=== PATIENT | male | born 1985 | race Caucasian/White ===

== ENCOUNTER 2020-05-26 19:47 | Emergency (ER) | payer BC ==
[~2020-05-26] VITALS: Ht 172.7 cm; Wt 93.8 kg
[2020-05-26 21:19] LABS: BASOPHILS % (AUTO) 1 % (0-1); EOSINOPHILS % (AUTO) 1 % (1-7); LYMPHOCYTES % (AUTO) 29 % (22-44); MEAN CORPUSCULAR HEMOGLOBIN 30.3 pg (27.5-34.5); MEAN CORPUSCULAR HGB CONC 33.9 g/dL (33.2-36.2); MEAN PLATELET VOLUME 7.6 fL (7.4-10.4); MONOCYTES % (AUTO) 8 % (2-9); NEUTROPHILS % (AUTO) 61 % (42-75); PLATELET COUNT 364 x10^3/uL (130-400); RED CELL DISTRIBUTION WIDTH 13.5 % (9.4-14.8)
[2020-05-26 21:21] LABS: ALBUMIN 4.1 g/dL (3.4-5.0); ANION GAP 6 mmol/L (5-15); CALCIUM 9.1 mg/dL (8.5-10.1); CHLORIDE 110 mmol/L (98-107)
[2020-05-26] MEDS ORDERED: ONDANSETRON 2MG/ML, 2ML ONE (21:26)
[2020-05-26] MEDS ORDERED: MORPHINE SULFATE 4 MG/ML, 1ML ONE ×2 (21:27→22:28)
[2020-05-26 21:28] LABS: ALANINE AMINOTRANSFERASE 33 U/L (12-78); ALKALINE PHOSPHATASE 90 U/L (45-117); BILIRUBIN,TOTAL 0.4 mg/dL (0.2-1.0); CREATININE 0.99 mg/dL (0.7-1.3); TOTAL PROTEIN 7.4 g/dL (6.4-8.2); TROPONIN I < 0.015 ng/mL (0.000-0.045)
[2020-05-26] MEDS ORDERED: ONDANSETRON 2MG/ML, 2ML IVPush ONE (21:30)
[2020-05-26 21:34] LABS: MD NO
[2020-05-26] MEDS: MORPHINE SULFATE 4 MG/ML, 1ML IVPush PRN ×2 (21:36→22:35)
[2020-05-26] MEDS ORDERED: OMNIPAQUE 350 MG/ML, 100ML BOTTLE ONE (22:00)
[2020-05-26] MEDS ORDERED: SODIUM CHLORIDE FLUSH 10ML SYR IVF ONE (22:00)
--- NOTE | 2020-05-26 22:35 | NUR ---
Pt reports pain level has decreased to 7. Minimal improvement. Administered 2nd dose of morphine.
--- NOTE | 2020-05-26 23:25 | NUR ---
Pt reports pain has improved and is tporable at this time
[2020-05-27] MEDS ORDERED: MAALOX/HYOSCYAMINE/LIDOCAINE 45 ML BTL ONE (00:22)
[2020-05-27] MEDS ORDERED: MAALOX/HYOSCYAMINE/LIDOCAINE 45 ML BTL PO ONE (00:30)
[2020-05-27 00:33] VITALS: BP 118/73
== END 2020-05-27 00:37 | disposition home or self-care (01) ==
LOC: ED 05-27
DX: K29.00 Acute gastritis without bleeding (principal); R10.12 Left upper quadrant pain; R10.84 Generalized abdominal pain; R00.0 Tachycardia, unspecified; I51.7 Cardiomegaly; R94.31 Abnormal electrocardiogram [ECG] [EKG]
CPT/HCPCS: 36415; 71045; 74177; 80053; 83690; 84484; 85025; 93005; 96374; 96375; 96376; 99285; J2270; J2405; Q9967

== ENCOUNTER 2020-05-30 18:04 | Emergency (ER) | payer BC ==
[~2020-05-30] VITALS: Ht 172.7 cm; Wt 89.9 kg
[2020-05-30] MEDS ORDERED: SODIUM CHLORIDE FLUSH 10ML SYR IVF ONE (19:00)
[2020-05-30 19:12] LABS: BASOPHILS % (AUTO) 1 % (0-1); EOSINOPHILS % (AUTO) 1 % (1-7); LYMPHOCYTES % (AUTO) 32 % (22-44); MEAN CORPUSCULAR HEMOGLOBIN 30.8 pg (27.5-34.5); MEAN CORPUSCULAR HGB CONC 34.4 g/dL (33.2-36.2); MEAN PLATELET VOLUME 7.4 fL (7.4-10.4); MONOCYTES % (AUTO) 8 % (2-9); NEUTROPHILS % (AUTO) 58 % (42-75); PLATELET COUNT 401 x10^3/uL (130-400); RED BLOOD COUNT 5.41 x10^6/uL (4.38-5.82); RED CELL DISTRIBUTION WIDTH 13.6 % (9.4-14.8)
[2020-05-30 19:16] LABS: MD NO
[2020-05-30 19:23] LABS: ALBUMIN 4.5 g/dL (3.4-5.0); ANION GAP 9 mmol/L (5-15); CALCIUM 9.6 mg/dL (8.5-10.1); CHLORIDE 110 mmol/L (98-107)
[2020-05-30 19:38] LABS: ALANINE AMINOTRANSFERASE 37 U/L (12-78); ALKALINE PHOSPHATASE 97 U/L (45-117); BILIRUBIN,TOTAL 0.5 mg/dL (0.2-1.0); CREATININE 0.99 mg/dL (0.7-1.3); TOTAL PROTEIN 8.2 g/dL (6.4-8.2)
--- NOTE | 2020-05-30 20:58 | NUR ---
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
[2020-05-30] MEDS ORDERED: ONDANSETRON ODT 8 MG PO ONE (21:30)
[2020-05-30] MEDS ORDERED: DICYCLOMINE 10 MG/ML, 2ML IM ONE (21:30)
[2020-05-30] MEDS ORDERED: MAALOX/HYOSCYAMINE/LIDOCAINE 45 ML BTL PO ONE (21:30)
[2020-05-30] MEDS ORDERED: ONDANSETRON ODT 4 MG ONE (22:11)
[2020-05-30] MEDS ORDERED: MAALOX/HYOSCYAMINE/LIDOCAINE 45 ML BTL ONE (22:12)
[2020-05-30] MEDS ORDERED: DICYCLOMINE 10 MG/ML, 2ML ONE (22:12)
[2020-05-30 23:20] VITALS: BP 117/72
--- NOTE | 2020-05-31 11:38 | NUR ---
PT BECAME ANGRY WITH DR FOR NOT GIVING HIM A NARC SCRIPT, BECAME RUDE WITH DR AND NURSE...
== END 2020-05-30 23:58 | disposition home or self-care (01) ==
LOC: ED 18:34
DX: K29.00 Acute gastritis without bleeding (principal); Z90.49 Acquired absence of other specified parts of digestive tract
CPT/HCPCS: 36415; 71045; 74021; 80053; 83690; 85025; 96372; 99284; J0500; 99283